=== PATIENT | female | born 1975 | race Asian ===

== ENCOUNTER 2023-04-22 07:52 | Day surgery (SDC) | payer OTHER ==
[2023-04-20 14:38] VITALS: BMI 31.2
[2023-04-22 08:17] VITALS: RESP 18
[2023-04-22 09:37] VITALS: TEMP 97
[2023-04-22 10:05] VITALS: BP 122/68; PULSE 85
== END 2023-04-22 10:20 | disposition home or self-care (01) ==
LOC: FASU-ENDO 07:52
PROVIDERS: ATTEND Internal Medicine Gastroenterology
PROC: 0DB98ZX Excision of Duodenum, Via Natural or Artificial Opening Endoscopic, Diagnostic (ICD-10-PCS; 2023-04-22)
PROC: 0DB68ZX Excision of Stomach, Via Natural or Artificial Opening Endoscopic, Diagnostic (ICD-10-PCS; 2023-04-22)
PROC: 0DB48ZX Excision of Esophagogastric Junction, Via Natural or Artificial Opening Endoscopic, Diagnostic (ICD-10-PCS; 2023-04-22)
PROC: 0DJD8ZZ Inspection of Lower Intestinal Tract, Via Natural or Artificial Opening Endoscopic (ICD-10-PCS; principal; 2023-04-22 09:11)
DX: Z12.11 Encounter for screening for malignant neoplasm of colon (principal); K57.30 Diverticulosis of large intestine without perforation or abscess without bleeding; K29.50 Unspecified chronic gastritis without bleeding; K21.00 Gastro-esophageal reflux disease with esophagitis, without bleeding; B96.81 Helicobacter pylori [H. pylori] as the cause of diseases classified elsewhere
CPT/HCPCS: 81025

== ENCOUNTER 2023-05-12 23:01 | Emergency (ER) | payer OTHER, BC ==
[2023-05-12 23:11] VITALS: BP 141/82; PULSE 103; RESP 20; TEMP 97.9; BMI 31.1
[2023-05-13] MEDS ORDERED: IBUPROFEN 400 MG TABLET (FP) PO ONE ×2 (01:38)
== END 2023-05-13 01:49 | disposition home or self-care (01) ==
LOC: FER 23:01
DX: M25.551 Pain in right hip (principal); S73.101A Unspecified sprain of right hip, initial encounter; X58.XXXA Exposure to other specified factors, initial encounter
CPT/HCPCS: 73502-TC-RT-FY; 99283-25